=== PATIENT | female | born 1990 | race Two or more races ===

== ENCOUNTER 2018-11-20 19:22 | Emergency (ER) | payer SELFPAY ==
[~2018-11-20] VITALS: Ht 162.6 cm; Wt 79.4 kg
[2018-11-20 20:03] LABS: BILIRUBIN,URINE NEGATIVE (NEG); CLARITY,URINE CLEAR; COLOR,URINE YELLOW; NITRITE,URINE NEGATIVE (NEG); PROTEIN,URINE NEGATIVE (NEG-TRACE); UROBILINOGEN,URINE 0.2 mg/dL (0.2 mg/dL)
[2018-11-20 20:04] LABS: BASO % 0 % (0-3); EOS # 0.1 x10^3/uL (0.0-0.7); EOS % 1 % (0-3); HEMATOCRIT 40.4 % (36.0-47.0); HEMOGLOBIN 13.7 g/dL (12.0-15.5); LYMPH # 2.5 x10^3/uL (1.0-4.8); LYMPH % 21 % (24-48); MEAN CORPUSCULAR HEMOGLOBIN 34 pg (25-35); MEAN CORPUSCULAR HGB CONC 34 g/dL (31-37); MEAN CORPUSCULAR VOLUME 100 fL (79-100); MONO # 0.9 x10^3/uL (0.0-1.1); MONO % 8 % (0-9); NEUT # 8.2 x10^3uL (1.8-7.7); NEUT % 70 % (31-73); PLATELET COUNT 306 x10^3/uL (140-400); RED BLOOD COUNT 4.02 x10^6/uL (3.50-5.40); RED CELL DISTRIBUTION WIDTH 13.8 % (11.5-14.5); WHITE BLOOD COUNT 11.8 x10^3/uL (4.0-11.0)
[2018-11-20 20:11] LABS: CALCIUM 8.4 mg/dL (8.5-10.1); CREATININE 0.6 mg/dL (0.6-1.0); GFR 119.9; POTASSIUM 3.4 mmol/L (3.5-5.1)
[2018-11-20 20:12] LABS: BACTERIA,URINE MODERATE /HPF (0-FEW); SQUAMOUS EPITHELIAL CELL,UR MANY /LPF; WBC,URINE 20-40 /HPF (0-4)
[2018-11-20] MEDS ORDERED: ONDANSETRON PF 4 MG/2 ML VIAL. IV ONE (20:15)
[2018-11-20] MEDS ORDERED: ACETAMINOPHEN 500 MG TABLET PO ONE (20:15)
[2018-11-20 20:17] LABS: ALBUMIN 3.3 g/dL (3.4-5.0); ALBUMIN/GLOBULIN RATIO 0.8 (1.0-1.7); TOTAL BILIRUBIN 0.1 mg/dL (0.2-1.0); TOTAL PROTEIN 7.2 g/dL (6.4-8.2)
--- NOTE | 2018-11-20 21:09 | RAD ---
OB < 14 WKS History: Left lower quadrant pain for 4 days Comparison: None. Findings: Multiple transabdominal sonographic images of pelvis are submitted. Cervix measured 3.8 cm. There is posterior placenta, placenta apparently covering the internal cervical os. Uterus measured 11.3 x 6.2 x 8.5 cm. There is a single intrauterine pole. There is visible yolk sac. Gestational sac morphology is within normal limits. anatomy is not well visualized at this age of the . [place]-rump length measurement of 3.12 cm corresponds with 10 weeks 0 days. Adjusted ultrasound age is 10 weeks 0 days with estimated delivery date by ultrasound of 06/18/2019. LMP dating is not provided. heart rate 165 bpm. Right ovary measured 2.3 x 3.6 x 2 cm. There is a focus of different echogenicity of the right ovary about 1.7 x 1.9 x 1.5 cm. There is normal color flow of the right ovary. Left ovary measured 1.9 x 3.4 x 1.7 cm with normal color flow. Impression: 1. There is a single viable uterine with estimated ultrasound age 10 weeks 0 days, estimated delivery date by ultrasound of 06/18/2019. There is posterior placenta, appearance on this exam of complete placenta previa for which attention on follow-up recommended. 2. There is likely corpus luteal cyst of the right ovary up to 1.9 cm. Electronically signed by: Matt Greene MD (11/20/2018 9:06 PM) [facility]
[2018-11-20 22:34] VITALS: BP 105/60
[2018-11-20] MEDS ORDERED: CEPH500T PO (23:03)
[2018-11-20] MEDS ORDERED: ONDA4TAB12 PO (23:03)
--- NOTE | 2018-11-20 23:03 | PHYS DOC ---
Past Medical History Past Medical History: No Pertinent History Past Surgical History: No Surgical History Alcohol Use: None Drug Use: None Adult General Chief Complaint Chief Complaint: ABDOMINAL PAIN HPI HPI Patient is a 28 year old female 4 para 3 currently 10 weeks presenting to the ED today complaining of a cramping left sided abdominal pain that began 3 days ago. Patient denies any fever. She states she's been nauseated but she believes this is from . She states she was seen by her own doctor and was diagnosed with an STD a couple weeks ago. She states she was treated and her partner was also treated. Patient denies any unusual vaginal discharge. Denies any vaginal bleeding. Review of Systems Review of Systems Constitutional: Denies fever or chills [] Eyes: Denies change in visual acuity, redness, or eye pain [] HENT: Denies nasal congestion or sore throat [] Respiratory: Denies cough or shortness of breath [] Cardiovascular: No additional information not addressed in HPI [] GI: Reports left sided abdominal pain, nausea, denies vomiting, bloody stools or diarrhea [] : Denies dysuria or hematuria [] Musculoskeletal: Denies back pain or joint pain [] Integument: Denies rash or skin lesions [] Neurologic: Denies headache, focal weakness or sensory changes [] ia [] All other systems were reviewed and found to be within normal limits, except as documented in this note. Current Medications Current Medications Current Medications Medications (Trade) Dose Ordered Sig/Oralia Start Time Stop Time Status Last Admin Dose Admin Acetaminophen (Tylenol) 1,000 mg 1X ONCE 11/20/18 20:15 11/20/18 20:16 DC 11/20/18 20:09 1,000 MG Ondansetron HCl (Zofran) 4 mg 1X ONCE 11/20/18 20:15 11/20/18 20:16 DC 11/20/18 20:21 4 MG Allergies Allergies Allergies Coded Allergies Type Severity Reaction Last Updated Verified No Known Drug Allergies 11/17/13 No Physical Exam Physical Exam Constitutional: Well developed, well nourished, no acute distress, non-toxic appearance. [] HENT: Normocephalic, atraumatic, bilateral external ears normal, oropharynx moist, no oral exudates, nose normal. [] Eyes: PERRLA, EOMI, conjunctiva normal, no discharge. [] Neck: Normal range of motion, no tenderness, supple, no stridor. [] Cardiovascular:Heart rate regular rhythm, no murmur [] Lungs & Thorax: Bilateral breath sounds clear to auscultation [] Abdomen: Bowel sounds normal, soft, no tenderness, no masses, no pulsatile masses. [] Skin: Warm, dry, no erythema, no rash. [] Back: No tenderness, no CVA tenderness. [] Extremities: No tenderness, no cyanosis, no clubbing, ROM intact, no edema. [] Neurologic: Alert and oriented X 3, normal motor function, normal sensory function, no focal deficits noted. [] Psychologic: Affect normal, judgement normal, mood normal. [] Current Patient Data Vital Signs Vital Signs Date Time Temp Pulse Resp B/P (MAP) Pulse Ox O2 Delivery O2 Flow Rate FiO2 11/20/18 19:30 98.3 97 16 106/55 (72) 97 Room Air 98.3 Lab Values Laboratory Tests Test 11/20/18 19:38 11/20/18 19:55 POC Urine HCG, Qualitative Hcg positive (Negative) White Blood Count 11.8 x10^3/uL (4.0-11.0) H Red Blood Count 4.02 x10^6/uL (3.50-5.40) Hemoglobin 13.7 g/dL (12.0-15.5) Hematocrit 40.4 % (36.0-47.0) Mean Corpuscular Volume 100 fL (79-100) Mean Corpuscular Hemoglobin 34 pg (25-35) Mean Corpuscular Hemoglobin Concent 34 g/dL (31-37) Red Cell Distribution Width 13.8 % (11.5-14.5) Platelet Count 306 x10^3/uL (140-400) Neutrophils (%) (Auto) 70 % (31-73) Lymphocytes (%) (Auto) 21 % (24-48) L Monocytes (%) (Auto) 8 % (0-9) Eosinophils (%) (Auto) 1 % (0-3) Basophils (%) (Auto) 0 % (0-3) Neutrophils # (Auto) 8.2 x10^3uL (1.8-7.7) H Lymphocytes # (Auto) 2.5 x10^3/uL (1.0-4.8) Monocytes # (Auto) 0.9 x10^3/uL (0.0-1.1) Eosinophils # (Auto) 0.1 x10^3/uL (0.0-0.7) Basophils # (Auto) 0.0 x10^3/uL (0.0-0.2) Urine Collection Type Unknown Urine Color Yellow Urine Clarity Clear Urine pH 6.0 Urine Specific [place] >=1.030 Urine Protein Negative mg/dL (NEG-TRACE) Urine Glucose (UA) Negative mg/dL (NEG) Urine Ketones (Stick) Negative mg/dL (NEG) Urine Blood Trace (NEG) Urine Nitrite Negative (NEG) Urine Bilirubin Negative (NEG) Urine Urobilinogen Dipstick 0.2 mg/dL (0.2 mg/dL) Urine Leukocyte Esterase Moderate (NEG) Urine RBC 1-2 /HPF (0-2) Urine WBC 20-40 /HPF (0-4) Urine Squamous Epithelial Cells Many /LPF Urine Bacteria Moderate /HPF (0-FEW) Urine Mucus Marked /LPF Maternal Serum HCG Beta Subunit 168511 mIU/mL (0-5) H Sodium Level 139 mmol/L (136-145) Potassium Level 3.4 mmol/L (3.5-5.1) L Chloride Level 103 mmol/L (98-107) Carbon Dioxide Level 24 mmol/L (21-32) Anion Gap 12 (6-14) Blood Urea Nitrogen 12 mg/dL (7-20) Creatinine 0.6 mg/dL (0.6-1.0) Estimated GFR (Cockcroft-Gault) 119.9 BUN/Creatinine Ratio 20 (6-20) Glucose Level 88 mg/dL (70-99) Calcium Level 8.4 mg/dL (8.5-10.1) L Total Bilirubin 0.1 mg/dL (0.2-1.0) L Aspartate Amino Transferase (AST) 14 U/L (15-37) L Alanine Aminotransferase (ALT) 18 U/L (14-59) Alkaline Phosphatase 61 U/L (46-116) Total Protein 7.2 g/dL (6.4-8.2) Albumin 3.3 g/dL (3.4-5.0) L Albumin/Globulin Ratio 0.8 (1.0-1.7) L Laboratory Tests 11/20/18 19:55 Laboratory Tests 11/20/18 19:55 EKG EKG [] Radiology/Procedures Radiology/Procedures []PROCEDURE: OB < 14 WKS OB < 14 WKS History: Left lower quadrant pain for 4 days Comparison: None. Findings: Multiple transabdominal sonographic images of pelvis are submitted. Cervix measured 3.8 cm. There is posterior placenta, placenta apparently covering the internal cervical os. Uterus measured 11.3 x 6.2 x 8.5 cm. There is a single intrauterine pole. There is visible yolk sac. Gestational sac morphology is within normal limits. anatomy is not well visualized at this age of the . [place]-rump length measurement of 3.12 cm corresponds with 10 weeks 0 days. Adjusted ultrasound age is 10 weeks 0 days with estimated delivery date by ultrasound of 06/18/2019. LMP dating is not provided. heart rate 165 bpm. Right ovary measured 2.3 x 3.6 x 2 cm. There is a focus of different echogenicity of the right ovary about 1.7 x 1.9 x 1.5 cm. There is normal color flow of the right ovary. Left ovary measured 1.9 x 3.4 x 1.7 cm with normal color flow. Impression: 1. There is a single viable uterine with estimated ultrasound age 10 weeks 0 days, estimated delivery date by ultrasound of 06/18/2019. There is posterior placenta, appearance on this exam of complete placenta previa for which attention on follow-up recommended. 2. There is likely corpus luteal cyst of the right ovary up to 1.9 cm. Electronically signed by: Clemente Walton MD (11/20/2018 9:06 PM) [facility] DICTATED and SIGNED BY: CLEMENTE WALTON MD DATE: 11/20/182105 Course & Med Decision Making Course & Med Decision Making Pertinent Labs and Imaging studies reviewed. (See chart for details) This is a 28-year-old female patient 4 para 3 currently 10 weeks presenting today complaining of left-sided abdominal pain with nausea, symptoms began 3 days ago. CBC with a WBC of 11.8, CMP would not acute findings, beta hCG 112,669, urine analysis is noted for UTI. OB ultrasound noted for an IUP 10 weeks 0 days, heart rate 165, noted posterior placenta, appearance on this exam of complete placenta previa for which attention on follow-up recommended. There is likely corpus luteal cyst of the right ovary up to 1.9 cm. Patient has no vaginal bleeding. She has an appointment with her own doctor on Sunday this week. She was instructed to maintain pelvic rest including no sex until seen by the [facility]END[facility]. She was discharged with cephalexin. Tylenol for pain. Zofran for nausea and vomiting. Dragon Disclaimer Dragon Disclaimer This electronic medical record was generated, in whole or in part, using a voice recognition dictation system. Departure Departure Impression: Primary Impression: Abdominal pain during Additional Impressions: Placenta previa Urinary tract infection during Disposition: HOME, SELF-CARE Condition: STABLE Referrals: NO PCP (PCP) follow up with your doctor on Sunday Patient Instructions: - Placenta Previa, Urinary Tract Infection Additional Instructions: You were evaluated in the emergency room for abdominal pain in . You have urinary tract infection. We put you on antibiotics, ensure you complete them. We sent you home with Zofran as needed for nausea/ vomiting. Take Tylenol as needed for pain. Follow-up with your own doctor on Sunday this week. He also have placenta previa where your placental seats low in the uterus, please do not have any sexual intercourse until you're seen by your doctor. No heavy lifting or strenuous activities. Scripts Cephalexin (CEPHALEXIN) 500 Mg Tablet 1 TAB PO BID, #14 TAB Prov: ELIAS FIORE APRN 11/20/18 Ondansetron (ONDANSETRON ODT) 4 Mg Tab.rapdis 1 TAB PO PRN Q6-8HRS, #16 TAB Prov: ELIAS FIORE APRN 11/20/18 Problem Qualifiers Primary Impression: Abdominal pain during Trimester: first trimester Qualified Codes: O26.891 - Other specified related conditions, first trimester; R10.9 - Unspecified abdominal pain Additional Impressions: Placenta previa Trimester: first trimester Qualified Codes: O44.01 - Complete placenta previa nos or without hemorrhage, first trimester Urinary tract infection during Trimester: first trimester Qualified Codes: O23.41 - Unspecified infection of urinary tract in , first trimester ELIAS FIORE APRN Nov 20, 2018 23:03
== END 2018-11-20 23:10 | disposition home or self-care (01) ==
LOC: ER 19:22
DX: O23.41 Unspecified infection of urinary tract in pregnancy, first trimester (principal); O44.01 Complete placenta previa NOS or without hemorrhage, first trimester; R11.0 Nausea; Z3A.10 10 weeks gestation of pregnancy
CPT/HCPCS: 36415; 76801; 80053; 81001; 81025; 84702; 85025; 87086; 96374; 99284; J2405; 99283

== ENCOUNTER 2021-01-14 19:05 | Emergency (ER) | payer SELFPAY ==
[~2021-01-14] VITALS: Ht 162.6 cm; Wt 74.5 kg
[~2021-01-14 19:05] MED LIST: CEPH500T PO; ONDA4TAB12 PO
--- NOTE | 2021-01-14 23:15 | RAD ---
EXAM: Right knee, 4 views HISTORY: Right knee pain. COMPARISON: None. FINDINGS: No fractures are identified. Joint spaces are maintained. Alignment is normal. There is no joint effu adrianna. IMPRESSION: 1. No fracture or joint effusion. Electronically signed by: Sai Oro MD (01/14/2021 11:12 PM) [facility]
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
[2021-01-14] MEDS ORDERED: HYDR-2761 PO (23:22)
[2021-01-14] MEDS ORDERED: HYDROcodone/APAP 5/325MG 1 TAB TABLET PO ONE (23:30)
[2021-01-14 23:45] VITALS: BP 106/68
== END 2021-01-14 23:47 | disposition home or self-care (01) ==
LOC: ER 19:05
DX: M25.561 Pain in right knee (principal); M25.562 Pain in left knee
CPT/HCPCS: 73564; 99283

== ENCOUNTER 2021-06-20 19:41 | Emergency (ER) | payer OTHER ==
[~2021-06-20] VITALS: Ht 162.6 cm; Wt 77.1 kg
[~2021-06-20 19:41] MED LIST changes: +HYDR-2761 PO
[2021-06-20] MEDS ORDERED: HYDROcodone/APAP 5/325MG 1 TAB TABLET PO ONE (20:30)
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
[2021-06-20 21:59] VITALS: BP 104/56
[2021-06-20] MEDS ORDERED: NAPR-514 PO (22:46)
[2021-06-20] MEDS ORDERED: CYCL10TA2 PO (22:46)
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
== END 2021-06-20 23:04 | disposition home or self-care (01) ==
LOC: ER 19:41
DX: S13.9XXA Sprain of joints and ligaments of unspecified parts of neck, initial encounter (principal); R51.9 Headache, unspecified; R10.84 Generalized abdominal pain; M25.572 Pain in left ankle and joints of left foot; M54.50 Low back pain, unspecified; V49.49XA Driver injured in collision with other motor vehicles in traffic accident, initial encounter; Y92.488 Other paved roadways as the place of occurrence of the external cause; Y93.89 Activity, other specified; Y99.8 Other external cause status
CPT/HCPCS: 70450; 71250; 72125; 73610; 74176; 81025; 99285-25